=== PATIENT | male | born 1985 | race Caucasian/White ===

== ENCOUNTER 2019-10-09 16:07 | Emergency (ER) | payer OTHER ==
[2019-10-09] MEDS ORDERED: KETOROLAC 15 MG/ML 1 ML VIAL IM STA (16:20)
--- NOTE | 2019-10-09 16:24 | ED ---
Chest Pain HPI - General Chief Complaint: Chest Pain Stated Complaint: Chest Pain Time Seen by Provider: 10/09/19 16:13 Source: patient, EMS, RN notes reviewed, old records reviewed Mode of arrival: EMS Limitations: no limitations - History of Present Illness Initial Comments: This is a 34-year-old male here with chest pain chest pain that is also worse with taking a deep breath. No cough congestion or shortness of breath patient currently at [facility] undergoing detox patient is at [facility] for heroin. No recent fevers cough congestion shortness of breath. Just the pain chest pain and especially noted with a deep breath MD Complaint: chest pain -: hour(s) Onset: during rest, during exertion Pain Location: substernal Pain Radiation: none Severity: mild Severity scale (1-10): 3 Quality: tightness Consistency: constant Improves With: nothing Worsens With: nothing Anginal Symptoms: dyspnea Other Symptoms: cough Treatments Prior to Arrival: none - Related Data Allergies Allergy/AdvReac Type Severity Reaction Status Date / Time chlorpromazine Allergy Rash/Hives Verified 10/09/19 16:29 [From Thorazine] Review of Systems ROS Statement: Those systems with pertinent positive or pertinent negative responses have been documented in the HPI. ROS Other: All systems not noted in ROS Statement are negative. EKG Findings - EKG Comments: EKG Findings:: EKG is sinus rhythm 100 GA 128 QRS 82 QTC 441 Past Medical History History of Any Multi-Drug Resistant Organisms: None Reported Past Surgical History: Orthopedic Surgery Past Psychological History: Anxiety Smoking Status: Current some day smoker Past Alcohol Use History: None Reported Past Drug Use History: Heroin General Exam Limitations: no limitations General appearance: alert, in no apparent distress Head exam: Present: atraumatic, normocephalic, normal inspection Eye exam: Present: normal appearance, PERRL, EOMI. Absent: scleral icterus, conjunctival injection, periorbital swelling ENT exam: Present: normal exam, mucous membranes moist Neck exam: Present: normal inspection. Absent: tenderness, meningismus, lymphadenopathy Respiratory exam: Present: normal lung sounds bilaterally. Absent: respiratory distress, wheezes, rales, rhonchi, stridor Cardiovascular Exam: Present: regular rate, normal rhythm, normal heart sounds. Absent: systolic murmur, diastolic murmur, rubs, gallop, clicks GI/Abdominal exam: Present: soft, normal bowel sounds. Absent: distended, tenderness, guarding, rebound, rigid Extremities exam: Present: normal inspection, full ROM, normal capillary refill. Absent: tenderness, pedal edema, joint swelling, calf tenderness Back exam: Present: normal inspection Neurological exam: Present: alert, oriented X3, CN II-XII intact Psychiatric exam: Present: normal affect, normal mood Skin exam: Present: warm, dry, intact, normal color. Absent: rash Course Vital Signs 10/09/19 10/09/19 16:10 17:06 Temperature 98.3 F Pulse Rate 98 73 Respiratory 18 Rate Blood Pressure 137/75 O2 Sat by Pulse 100 Oximetry - Reevaluation(s) Reevaluation #1: 10/09/19 16:24 Medical records reviewed Reevaluation #2: 10/09/19 17:21 Patient symptoms are significantly improved Reevaluation #3: 10/09/19 17:21 Patient informed results okay for discharge home Chest Pain MDM - MDM 34 male nonspecific chest pain no acute distress vital signs are within normal limits patient is to mild anxiety does not want return to [facility]. Patient can be discharged home Disposition Clinical Impression: Atypical chest pain, Chest pain Disposition: HOME SELF-CARE Condition: Good Instructions (If sedation given, give patient instructions): Costochondritis (ED), Chest Pain (ED) Is patient prescribed a controlled substance at d/c from ED?: No Referrals: None,Stated [Primary Care Provider] - 1-2 days
[2019-10-09] MEDS ORDERED: dexAMETHasone 4 MG TAB PO STA (16:40)
[2019-10-09] MEDS ORDERED: IPRATROPIUM-ALBUTEROL 3 ML NEB INHALATION STA (16:40)
--- NOTE | 2019-10-09 16:40 | XR ---
EXAMINATION TYPE: XR chest 2V DATE OF EXAM: 10/09/2019 COMPARISON: NONE HISTORY: Chest pain TECHNIQUE: 2 views FINDINGS: Heart and mediastinum are normal. Lungs are clear. Diaphragm is normal. Bony thorax appears normal. There are chest leads. IMPRESSION: Normal chest.
[2019-10-09] MEDS ORDERED: cloNIDine 0.3 MG/24HR PATCH TRANSDERM SCH (16:45)
[2019-10-09] MEDS ORDERED: SODIUM CHLORIDE 0.9% 1,000 ML IV ONE (17:32)
[2019-10-09 18:41] VITALS: BP 144/79; PULSE 94; RESP 16; TEMP 98.9
== END 2019-10-09 19:07 | disposition home or self-care (01) ==
LOC: EC 16:07
DX: R07.89 Other chest pain (principal); F17.200 Nicotine dependence, unspecified, uncomplicated; F41.9 Anxiety disorder, unspecified; Z88.8 Allergy status to other drugs, medicaments and biological substances; Z20.828 Contact with and (suspected) exposure to other viral communicable diseases
CPT/HCPCS: 94640; 71046; 99285; 96372; 96360; U0003; J8540; J1885